=== PATIENT | male | born 1980 | race Caucasian/White ===

== ENCOUNTER 2019-06-29 00:44 | Emergency (ER) | payer SELFPAY ==
[~2019-06-29] VITALS: Ht 170.2 cm; Wt 79.4 kg
--- NOTE | 2019-06-29 00:56 | NUR ---
ED Nurse Note: Pt walked in c/o ETOH withdrawal, pt reports he was hospitalized at [facility] for three days and was discharged, pt received valium and states he felt better but now that the valium is wearing off and pt started having sx of ETOH withdrawal. Pt AA&ox4, gcs=15, skin warm and dry, resp even and unlabored on RA, noted sinus tach on manager monitoring, pt ambulatory w/ steady gait, will cont monitor.
[2019-06-29 00:58] VITALS: BP 148/123
[2019-06-29] MEDS ORDERED: chlordiazePOXIDE 25mg Cap ORAL ONE (01:30)
[2019-06-29] MEDS ORDERED: LORazepam Inj 2mg/ml 1ml IM ONE (01:30)
[2019-06-29] MEDS ORDERED: LIBRIUM25 MG ORAL (01:44)
--- NOTE | 2019-06-29 01:44 | Emergency Room Report ---
History of Present Illness General Chief Complaint: General Complaint Source: Patient Present Illness HPI This is a 38-year-old male with a history of alcoholism. He presents with chief complaint of alcohol withdrawal. He usually drinks 1/5 of vodka a day. He was admitted to [facility] for 3 days for alcohol withdrawal. He was getting Valium. He was discharged to a rehab facility. He wanted Librium taper but he said the doctor refused to give it to him. He is going to withdrawal now. He gets propranolol for tachycardia. He said he felt shaky. He said his blood pressure is elevated. He denies any suicidal thoughts homicidal thought. Last drink was 3 and half days ago. He has been in rehab multiple times. Allergies: Coded Allergies: No Known Allergies (Unverified , 06/29/19) Patient History Past Medical History: see triage record, old chart reviewed Past Surgical History: other Pertinent Family History: none Social History: Reports: alcohol use Immunizations: other Reviewed Nursing Documentation: PMH: Agreed; PSxH: Agreed Nursing Documentation-PMH Past Medical History: No History, Except For Review of Systems Eye: Denies: eye pain, blurred vision ENT: Denies: ear pain, nose congestion, throat swelling Respiratory: Denies: cough, shortness of breath Cardiovascular: Denies: chest pain, palpitations Gastrointestinal: Denies: abdominal pain, diarrhea, nausea, vomiting Musculoskeletal: Denies: back pain, joint pain Skin: Denies: rash Neurological: Denies: headache, numbness Endocrine: Denies: increased thirst, increased urine Hematologic/Lymphatic: Denies: easy bruising All Other Systems: negative except mentioned in HPI Physical Exam Vital Signs Date Time Temp Pulse Resp B/P (MAP) Pulse Ox O2 Delivery O2 Flow Rate FiO2 06/29/19 00:51 98.8 123 18 149/120 (130) 98 Room Air Vitals with high blood pressure and tachycardia Sp02 EP Interpretation: reviewed, normal General Appearance: well appearing, no apparent distress, alert Head: normocephalic, atraumatic Eyes: bilateral eye PERRL, bilateral eye EOMI ENT: hearing grossly normal, normal pharynx Neck: full range of motion, supple, no meningismus Respiratory: chest non-tender, lungs clear, normal breath sounds Cardiovascular #1: regular rate, rhythm, no murmur Gastrointestinal: normal bowel sounds, non tender, no mass, no organomegaly, no bruit, non-distended Musculoskeletal: back normal, gait/station normal, normal range of motion Neurologic: alert, oriented x3, other - Mild tremor Psychiatric: mood/affect normal Medical Decision Making Diagnostic Impression: Primary Impression: Alcohol withdrawal Qualified Codes: F10.230 - Alcohol dependence with withdrawal, uncomplicated ER Course This patient presents with alcohol withdrawal. Better after Ativan and Librium here. Will discharge home with Librium. Last Vital Signs Date Time Temp Pulse Resp B/P (MAP) Pulse Ox O2 Delivery O2 Flow Rate FiO2 06/29/19 00:58 103 18 Room Air 06/29/19 00:58 98.8 148/123 98 Status: improved Disposition: HOME, SELF-CARE Condition: Stable Scripts Chlordiazepoxide (Chlordiazepoxide HCl) 25 Mg Capsule 50 MG ORAL THREE TIMES A DAY, #21 CAP 0 Refills Prov: Cosme Staton MD 06/29/19 Additional Instructions: Continue with rehab. Follow-up with your doctor in 7 days. Return if worse. Cosme Staton MD Jun 29, 2019 01:44
[2019-06-29 01:53] VITALS: BP 145/98
--- NOTE | 2019-06-29 01:53 | NUR ---
ED Nurse Note: Pt cleared by ERMD for discharge. DC instructions/prescription was given and explained to pt and verbalized understanding of teachings. All medical deviecs such as ID band removed. Pt is AAO x4, ambulatory and left with all personal belongings.
== END 2019-06-29 01:55 | disposition home or self-care (01) ==
LOC: EMR 01:55
DX: F10.230 Alcohol dependence with withdrawal, uncomplicated (principal)
CPT/HCPCS: 96372; 99283